=== PATIENT | male | born 1945 | race Caucasian/White ===

== ENCOUNTER → 2017-03-23 | Outpatient (CLI) | payer MEDICARE, BC ==
[~2017-03-23] MED LIST: ACULAR OPHTHALMI5 ML OP; ARTIFICIAL TEAR1 OI1 OP; ASPIRIN 81M81 MG/TA2 PO; LISINOPRIL PO; NORCO 325 MG-51 TAB PO; OCUFLOX OPHTH DR5 ML OP; PRED FORTE 1 ML1 ML OP; PRINIVIL2.5 MG PO; [UNRECOGNIZED DRUG - OTHER] PO
== END ==
LOC: COL.RAD 11:20
DX: Z01.812 Encounter for preprocedural laboratory examination (principal); I63.9 Cerebral infarction, unspecified; I65.23 Occlusion and stenosis of bilateral carotid arteries; R01.1 Cardiac murmur, unspecified; I77.810 Thoracic aortic ectasia; I08.2 Rheumatic disorders of both aortic and tricuspid valves; G45.0 Vertebro-basilar artery syndrome
CPT/HCPCS: Q9967

== ENCOUNTER 2023-02-03 13:59 | Inpatient (IN) | payer MEDICARE, BC ==
[~2023-02-03] VITALS: Ht 185.4 cm; Wt 118.8 kg
[2023-02-03] MEDS ORDERED: PRINZIDE 12.5 M1 TA1 PO (14:06)
[2023-02-03] MEDS ORDERED: COMPLETE MULTI1 TAB PO (14:07)
[2023-02-03] MEDS ORDERED: LYSINE1000 MG PO (14:07)
[2023-02-03] MEDS ORDERED: NEURIVA PLUS B1 EACH PO (14:07)
[2023-02-03 16:30] LABS: BASO # 0.1 K/mm3 (0.0-0.2); BASO % 0.5 % (0.0-2.0); EOS # 0.1 K/mm3 (0.0-0.7); EOS % 0.8 % (0.0-4.0); GRAN # 9.3 K/mm3 (1.4-6.5); HEMATOCRIT 45.1 % (42.0-52.0); HEMOGLOBIN 15.4 g/dl (13.5-18.0); LYMPH # 2.4 K/mm3 (1.2-3.4); LYMPH % 18.1 % (20.0-51.0); MEAN CELL VOLUME 81 fl (80.0-100.0); MEAN CORPUSCULAR HEMOGLOBIN 28 pg (27-31); MEAN CORPUSCULAR HGB CONC 34 g/dl (33.0-37.0); MEAN PLATELET VOLUME 10.6 fl (7.4-10.4); MONO # 1.2 K/mm3 (0.1-0.6); PLATELET COUNT 223 K/mm3 (130-400); RED BLOOD COUNT 5.56 M/mm3 (4.20-5.60); REDCELL DISTRIBUTION WIDTH-CV 13.3 % (11.5-14.5)
[2023-02-03 16:36] LABS: INR 1.1 (0.8-3.0); PROTHROMBIN TIME 12.4 SECONDS (9.7-12.8)
[2023-02-03 16:50] LABS: BILIRUBIN,TOTAL 0.7 mg/dL (0.2-1.2); CALCIUM 9.6 mg/dL (8.4-10.2); CREATININE, serum 0.93 mg/dL (0.72-1.25); POTASSIUM 4.2 mmol/L (3.5-4.5); TOTAL PROTEIN 7.4 gm/dL (6.2-8.1)
[2023-02-03 17:45] VITALS: BP 139/71; PULSE 93; TEMP 97.9
--- NOTE | 2023-02-03 17:54 | NUR ---
Patient arrived to the unit from ER via bed. Patient alert and oriented x 4. VSS. Patient reports of severe pain the left femur with movement. Pulses papable, Lung CTA. 16 Marshallese gifford inserted per orders and urine sample obtained and sent to lab. Patient oriented to room and the use of call. SCD and marlon hose applied to unaffected extremity. Family at the bedside.
[2023-02-03 18:01] VITALS: BP_SYST 139
[2023-02-03] MEDS ORDERED: BENADRYL25 M2 PO (18:02)
--- NOTE | 2023-02-03 18:44 | NUR ---
Patient having episodes of dry heaves, zofran administered.
[2023-02-03 19:03] LABS: MUCOUS Present (NOT PRESENT); SQUAMOUS EPITHELIAL None Seen /hpf (0-10); URINE APPEARANCE Cloudy (CLEAR/HAZY); URINE BACTERIA Many /hpf (NONE SEEN); URINE BLOOD Negative (NEGATIVE); URINE COLOR Yellow (YELLOW); URINE GLUCOSE Negative (NEGATIVE); URINE KETONE Negative (NEGATIVE); URINE NITRATE Negative (NEGATIVE); URINE PROTEIN(semi-quant) 2+ (NEGATIVE); URINE UROBILINOGEN 0.2 E.U/dL (0.2-1.0)
[2023-02-03 19:04] LABS: COLLECTION METHOD CATHETER
[2023-02-03 19:39] VITALS: BP 112/59; PULSE 84; TEMP 98.6
[2023-02-03 20:30] VITALS: BP_SYST 112
--- NOTE | 2023-02-03 21:55 | NUR ---
PT IN BED. REPORTS PAIN TO LT LEG 07/11. MEDICATED WITH OXYCODONE 5MG PO NOW. LT LEG WITH ICE PACK, MILDLY SWOLLEN. HAS MAGUIRE TO BSD. INT TO RFA. IS ALERT AND ORIENTED X4.
--- NOTE | 2023-02-03 22:41 | NUR ---
REPEATED OXYCODONE 5MG PO NOW FOR CONTINUED LT LEG PAIN. OFFERED MORPHINE IF PAIN PERSISTS.
--- NOTE | 2023-02-03 23:30 | NUR ---
IVF CONNECTED TO RFA, INFUSING WITHOUT PROBLEM. PT TO BE NPO AT MIDNIGHT, HE IS AWARE. REPORTS GOOD PAIN RELIEF WITH OXYCODONE.
[2023-02-03 23:54] VITALS: BP 127/66; PULSE 88; TEMP 98.7
[2023-02-04] VITALS (17 sets, daily range): BP systolic 115–138; BP diastolic 48–70; PULSE 78–88; TEMP 97.5–98.4
--- NOTE | 2023-02-04 00:15 | NUR ---
SCHEDULED ES TYLENOL GIVEN. PT NPO NOW.
--- NOTE | 2023-02-04 05:00 | NUR ---
PT DENIES NEED FOR PAIN MEDS AT THIS TIME.
[2023-02-04 06:56] LABS: BASO # 0.1 K/mm3 (0.0-0.2); BASO % 0.5 % (0.0-2.0); EOS # 0.1 K/mm3 (0.0-0.7); EOS % 1.1 % (0.0-4.0); GRAN # 7.6 K/mm3 (1.4-6.5); GRAN % 68.7 % (42.2-75.2); LYMPH # 2.1 K/mm3 (1.2-3.4); MEAN CELL VOLUME 83 fl (80.0-100.0); MEAN CORPUSCULAR HEMOGLOBIN 28 pg (27-31); MEAN CORPUSCULAR HGB CONC 33 g/dl (33.0-37.0); MEAN PLATELET VOLUME 10.3 fl (7.4-10.4); MONO # 1.1 K/mm3 (0.1-0.6); PLATELET COUNT 207 K/mm3 (130-400); RED BLOOD COUNT 4.58 M/mm3 (4.20-5.60); REDCELL DISTRIBUTION WIDTH-CV 13.5 % (11.5-14.5)
[2023-02-04 07:02] LABS: HEMOGLOBIN 12.6 g/dl (13.5-18.0)
[2023-02-04 07:14] LABS: CALCIUM 8.6 mg/dL (8.4-10.2); CREATININE, serum 1.1 mg/dL (0.72-1.25); MAGNESIUM 1.9 mg/dL (1.6-2.6); POTASSIUM 4.1 mmol/L (3.5-4.5)
--- NOTE | 2023-02-04 08:00 | NUR ---
PATIENT IS A&O. VSS. PATIENT REPORTS PAIN IS MANAGED AT REST BUT IS INQUIRING ABOUT SURGERY. ORTHO CALLED TO SEE IF PATIENT CLEARED, CALLED HOSPITALIST AND LEFT MESSAGE ABOUT CLEARANCE. IF CLEARED, ORTHO WOULD LIKE TO TAKE PATIENT TO OR AROUND 1000. NPO. IV FLUIDS INFUSING VIA PUMP INTO RIGHT FORARM IV VIA PUMP. MAGUIRE TO DD WITH SMALL AMOUNTS OF CLEAR YELLOW URINE NOTED. PRE-OP EKG ORDERED YESTERDAY NOT OBTAINED, CALLED RT, EKG COMPLETED. SCD'S TO BLE. HEAD TO TOE ASSESSMENT COMPLETE. NO OTHER NEEDS AT THIS TIME. CALL LIGHT IN REACH. BED ALARM ON.
--- NOTE | 2023-02-04 10:00 | NUR ---
PATIENT GOING DOWN TO OR VIA BED. NPO. CONSENT ON CHART. PRE-OP FLUIDS INFUSING VIA GRAVITY INTO RIGHT FORARM IV. MAGUIRE EMPTIED. PATIENT OFF FLOOR.
--- NOTE | 2023-02-04 12:15 | NUR ---
PATIENT BACK IN ROOM 346 POST-OP. PATIENT IS VERY DROWSY. FAMILY AT BEDSIDE. VSS. NO COMPLAINTS. PATIENT RESTING COMFORTABLY. LEFT HIP DSG'S X3 ARE CD&I WITH GAUZE & TEGADERM. TEDS & SCD'S TO BLE. IV FLUIDS INFUSING INTO RIGHT FORARM IV. MAGUIRE TO DD. PACU REPORTS MAGUIRE WAS PULLED TO TENSION DURING THE PROCEDURE AND BLOOD NOTED AT PENIS, PATIENT CLEANED UP. CALL LIGHT IN REACH. BED ALARM ON.
--- NOTE | 2023-02-04 16:18 | NUR ---
SW went to complete intake; pt was sleep and requested to complete intake later.
--- NOTE | 2023-02-04 19:30 | NUR ---
PT AWAKE, SET UP DINNER TRAY SO HE COULD EAT. DENIES PAIN. IVF TO RFA INFUSING WITHOUT PROBLEM. REPORTS BILATERAL HEEL BURNING, ELEVATED ON PILLOWS.
--- NOTE | 2023-02-04 21:00 | NUR ---
PT DROWSY, DENIES PAIN. HS MED GIVEN. ICE PACK REPLACED TO LEFT HIP, INCISIONS D/I WITH GAUZE AND TEGADERM. ANDREZ TO BSD. HAS OXYGEN ON AT 2L/NC.
[2023-02-05] VITALS (12 sets, daily range): BP systolic 98–138; BP diastolic 48–63; PULSE 72–86; TEMP 97.4–98.4
--- NOTE | 2023-02-05 02:50 | NUR ---
PT AWAKE, DENIES PAIN AT THIS TIME.
--- NOTE | 2023-02-05 03:30 | NUR ---
PT ASSISTED TO BSC FOR POSSIBLE BM. MAX 2 ASSIST WITH GAIT BELT AND WALKER. PASSES GAS ONLY. LEFT LEG SHAKY AND WEAK. BACK TO BED WITH MAX ASSIST. INCISIONS X3 TO LEFT OUTER LEG D/I.
--- NOTE | 2023-02-05 05:35 | NUR ---
PT REPORTS LT THIGH CRAMPING, OXYCODONE 5MG PO GIVEN.
--- NOTE | 2023-02-05 14:19 | NUR ---
SW met with pt to complete intake. PT reports he lives at home with his , Ananya [phone] and is independent on all ADLs and does have a FWW, and cane. PCP is Dr. Feng and [facility] in [place], [place]. PT/OT is recommending SNF or IPR. SW spoke with pt and he reports he would like referral to [place] and [facility]. SW faxed referral [facility] in [place]. No other needs at this time. SW await further recommendations and follow up as needed. DC: SNF or IPR
--- NOTE | 2023-02-05 17:35 | NUR ---
PATIENT SUDDENTLY FELT NAUSEATED AFTER STARTING TO EAT SUPPER. NO IV SITE. STARTED NEW IV, 22 GAUZE IN LEFT HAND. PRN ZOFRAN GIVEN.
--- NOTE | 2023-02-05 20:00 | NUR ---
PT IN BED, DENIES NAUSEA OR PAIN AT THIS TIME. INT TO LH, FLUSHES WELL. URINE REMAINS HAZY, DK YELLOW. INCISIONS X3 TO LT OUTER LEG D/I. SCDS ON. PT DENIES NEEDS AT THIS TIME.
[2023-02-06] VITALS (10 sets, daily range): BP systolic 97–119; BP diastolic 53–57; PULSE 64–80; TEMP 97.7–98.2
--- NOTE | 2023-02-06 00:16 | NUR ---
MEDICATED WITH SCHEDULED ES TYLENOL AND DOSE OF OXYCODONE 5MG PO NOW. CONNECTED ORDERED IVF, INFUSING WITHOUT PROBLEM.
--- NOTE | 2023-02-06 05:55 | NUR ---
MAGUIRE REMOVED AFTER DEFLATING BALLOON. PT DENIES NEED FOR PAIN MEDS AT THIS TIME. URINAL AT BEDSIDE.
[2023-02-06 06:28] LABS: BASO % 0.4 % (0.0-2.0); EOS # 0.2 K/mm3 (0.0-0.7); EOS % 1.9 % (0.0-4.0); GRAN % 65.7 % (42.2-75.2); LYMPH # 2.1 K/mm3 (1.2-3.4); LYMPH % 19.9 % (20.0-51.0); MEAN CELL VOLUME 83 fl (80.0-100.0); MEAN CORPUSCULAR HGB CONC 34 g/dl (33.0-37.0); MEAN PLATELET VOLUME 10.6 fl (7.4-10.4); MONO # 1.2 K/mm3 (0.1-0.6); MONO % 11.4 % (1.7-9.3); PLATELET COUNT 182 K/mm3 (130-400); RED BLOOD COUNT 3.31 M/mm3 (4.20-5.60); REDCELL DISTRIBUTION WIDTH-CV 13.4 % (11.5-14.5)
[2023-02-06 06:36] LABS: HEMOGLOBIN 9.3 g/dl (13.5-18.0); MEAN CORPUSCULAR HEMOGLOBIN 28 pg (27-31)
[2023-02-06 06:37] LABS: HEMATOCRIT 27.6 % (42.0-52.0)
[2023-02-06 06:42] LABS: ALBUMIN 2.8 gm/dL (3.4-4.8); CALCIUM 8.2 mg/dL (8.4-10.2); CREATININE, serum 1.03 mg/dL (0.72-1.25); MAGNESIUM 2.4 mg/dL (1.6-2.6); PHOSPHOROUS 3.7 mg/dL (2.3-4.7)
--- NOTE | 2023-02-06 09:10 | NUR ---
Pt. sitting up in chair. Pt. is A&OX3, assessment complete. INT to lt. hand patent. Dressings to lt hip and thigh CDI. Pt. reports pain at a 5 on pain scale, gave pain meds per orders. Giving pain meds per orders. Pt. denies further needs, call light within reach.
--- NOTE | 2023-02-06 10:59 | NUR ---
NEO staffed with the PA. The patient may be able to discharge tomorrow. NEO followed up with Lara, IPR Director, on the referral. Lara informed NEO that after meeting with the patient, the patient would prefer [facility]. NEO contacted Joanne at [facility] to follow up on the referral and inform her of discharge date. Joanne states that they have not received the patient's information yet. She asked that SW email the referral. Joanne also shares that the patient's family has already contacted them. NEO emailed the referral to Joanne. Awaiting screen.
--- NOTE | 2023-02-06 14:24 | NUR ---
Joanne, at [facility], reports that they are able to accept the patient for a skilled stay tomorrow. She states that they should have transportation. NEO contacted and updated the patient's , Ananya. Ananya is in agreement to the plan. She states that if we cannot get ahold of her tomorrow, then to call their son, Myles (ph#[phone]). SW met with the patient and granddaughter to update. The patient is in agreement to the plan. SW presented and read the IM form outloud to him. The patient verbalized understanding and signed the form. SW provided him with a copy. *Discharge plan: [facility] SNF*
--- NOTE | 2023-02-06 14:37 | NUR ---
Pt. has not voided yet and catheter was pulled this am. Bladderscanned pt. Scan reported 313mls in bladder at this time. Will monitor.
[2023-02-07] VITALS: BP 130/55; PULSE 76; TEMP 98.3
[2023-02-07 04:00] VITALS: BP 118/61; PULSE 738; TEMP 98.2
[2023-02-07 07:27] LABS: BASO # 0.1 K/mm3 (0.0-0.2); BASO % 0.6 % (0.0-2.0); EOS # 0.1 K/mm3 (0.0-0.7); EOS % 1.4 % (0.0-4.0); GRAN # 6.1 K/mm3 (1.4-6.5); GRAN % 63.5 % (42.2-75.2); LYMPH # 2.1 K/mm3 (1.2-3.4); MEAN CELL VOLUME 81 fl (80.0-100.0); MEAN CORPUSCULAR HGB CONC 34 g/dl (33.0-37.0); MEAN PLATELET VOLUME 10.3 fl (7.4-10.4); MONO # 1.1 K/mm3 (0.1-0.6); MONO % 11.5 % (1.7-9.3); PLATELET COUNT 221 K/mm3 (130-400); RED BLOOD COUNT 3.54 M/mm3 (4.20-5.60); REDCELL DISTRIBUTION WIDTH-CV 13.2 % (11.5-14.5)
[2023-02-07 07:29] LABS: HEMATOCRIT 28.7 % (42.0-52.0); HEMOGLOBIN 9.8 g/dl (13.5-18.0); MEAN CORPUSCULAR HEMOGLOBIN 28 pg (27-31)
[2023-02-07 07:43] VITALS: BP 112/72; PULSE 74; TEMP 98
[2023-02-07 07:53] LABS: ALBUMIN 2.9 gm/dL (3.4-4.8); CALCIUM 8.6 mg/dL (8.4-10.2); CREATININE, serum 0.85 mg/dL (0.72-1.25); MAGNESIUM 2.2 mg/dL (1.6-2.6); PHOSPHOROUS 3.3 mg/dL (2.3-4.7); POTASSIUM 4.6 mmol/L (3.5-4.5)
[2023-02-07 08:00] VITALS: BP_SYST 112
[2023-02-07] MEDS ORDERED: ASPI325T6 PO (09:32)
[2023-02-07] MEDS ORDERED: FERRO-TIME325 MG PO (09:32)
[2023-02-07] MEDS ORDERED: VITAMIN C500 MG PO (09:33)
[2023-02-07] MEDS ORDERED: OSCAL 500 TAB500 MG PO (09:33)
[2023-02-07] MEDS ORDERED: ROXICODONE 55 MG/TAB PO (09:33)
[2023-02-07] MEDS ORDERED: TYLENOL 500MG500 MG PO (09:33)
--- NOTE | 2023-02-07 09:48 | NUR ---
The patient is to discharge today, 02/07, to [facility] for a skilled stay. Transportation was scheduled around 1100, via [facility]. SW notified the patient's son, Myles, and the RN of the time. No additional needs at this time.
== END 2023-02-07 11:08 | DRG 481 ==
LOC: COL.ER 13:59 → SURG 14:52 → EDBEDREQ 16:26 → SURG 02-07 11:08
PROVIDERS: Internal Medicine; Orthopaedic Surgery Sports Medicine; ADMIT Internal Medicine
PROC: 0QS706Z Reposition Left Upper Femur with Intramedullary Internal Fixation Device, Open Approach (ICD-10-PCS; principal; 2023-02-04 11:00)
DX: S72.142A Displaced intertrochanteric fracture of left femur, initial encounter for closed fracture (principal); D62 Acute posthemorrhagic anemia; E87.1 Hypo-osmolality and hyponatremia; I10 Essential (primary) hypertension; Z96.651 Presence of right artificial knee joint; W01.0XXA Fall on same level from slipping, tripping and stumbling without subsequent striking against object, initial encounter; Y93.89 Activity, other specified; Y92.89 Other specified places as the place of occurrence of the external cause; Z79.82 Long term (current) use of aspirin
CPT/HCPCS: A9284; C1713; C1769; J0690; J1100; J1885; J2250; J2270; J2405; J2704; J2795; J3010; J3475; J7121